=== PATIENT | female | born 1975 | race Caucasian/White ===

== ENCOUNTER 2016-07-25 15:18 | Emergency (ER) | payer SELFPAY ==
[~2016-07-25 15:18] MED LIST: LITH300T19
== END 2016-07-25 17:45 | disposition left against medical advice (07) ==
LOC: ER 15:19
DX: M54.2 Cervicalgia (principal); Z53.21 Procedure and treatment not carried out due to patient leaving prior to being seen by health care provider

== ENCOUNTER 2017-05-14 19:40 | Inpatient (IN) | payer MEDICAID ==
[~2017-05-14] VITALS: Ht 162.6 cm; Wt 79.4 kg
[~2017-05-14 19:40] MED LIST changes: -LITH300T19; +LITHBID
[2017-05-14] MEDS ORDERED: DEXT 5%/LR + PITOCIN 20UNITS/L 1,000 ML IV ONE (20:04)
[2017-05-14] MEDS ORDERED: DEXT 5%/LR + PITOCIN 20UNITS/L 1,000 ML IV SCH ×3 (20:07→23:38)
[2017-05-14] MEDS ORDERED: METHYLERGONOVINE MALEATE 0.2 MG/ML IM PRN ×2 (20:15→20:30)
[2017-05-14] MEDS ORDERED: GLYCERIN/WITCH HAZEL LEAF MEDICATED PAD TOP PRN (20:15)
[2017-05-14] MEDS ORDERED: LACTATED RINGERS 1,000 ML IV SCH (20:22)
[2017-05-14] MEDS ORDERED: CARBOPROST TROMETHAMINE 250 MCG/ML AMPUL IM PRN (20:30)
[2017-05-14] MEDS ORDERED: NALOXONE HCL 0.4 MG/ML 1ML VIAL IM PRN (20:30)
[2017-05-14] MEDS: IBUPROFEN 400MG TABLET PO PRN (20:47)
[2017-05-14] MEDS: SIMETHICONE 80MG TABLET CHEW PO SCH (21:00)
[2017-05-14] MEDS ORDERED: DOCUSATE SODIUM 100MG CAPSULE PO SCH (21:00)
[2017-05-14 21:23] LABS: HEMATOCRIT. 29.8 % (36.0-48.0); HEMOGLOBIN. 9.9 g/dL (12.0-16.0); MEAN CORPUSCULAR HEMOGLOBIN 29.2 pg (28.0-32.0); MEAN CORPUSCULAR VOLUME 87.6 fL (81.0-99.0); MEAN PLATELET VOLUME 8.2 fl (7.4-10.4); PLATELET 217 x1000/uL (130-400)
[2017-05-14 21:30] LABS: INR 0.9; PARTIAL THROMBOPLASTIN TIME 25.2 sec (23.4-31.0); PROTHROMBIN TIME 9.7 sec (9.4-11.6)
[2017-05-14 22:16] LABS: HEPATITIS B SURFACE ANTIGEN NEGATIVE; RUBELLA IGG 63.2 IU/mL (4.99-10)
[2017-05-14 23:30] LABS: CLARITY URINE CLOUDY (CLEAR); COLOR URINE RED (YELLOW); KETONES URINE NEGATIVE (NEGATIVE); LEUKOCYTE ESTERASE URINE 3+ (NEGATIVE); NITRITE URINE POSITIVE (NEGATIVE); OCCULT BLOOD URINE 3+ (NEGATIVE); PH URINE 6.5 (4.5-8.0); PROTEIN URINE 2+ (NEGATIVE); SPECIFIC GRAVITY URINE 1.012 (1.005-1.030); UROBILINOGEN URINE 0.2 E.U./dL (0.2-1.0)
[2017-05-14 23:33] LABS: *BARBITURATES SCREEN URINE NEGATIVE (NEGATIVE); *BENZODIAZEPINES SCREEN URINE NEGATIVE (NEGATIVE); *COCAINE SCREEN URINE NEGATIVE (NEGATIVE); METHADONE URINE SCREEN NEGATIVE (NEGATIVE); OPIATES URINE SCREEN NEGATIVE (NEGATIVE); PHENCYCLIDINE URINE SCREEN NEGATIVE (NEGATIVE)
[2017-05-14 23:37] LABS: *AMPHETAMINES SCREEN URINE PRESUMTIVE POSITIVE (NEGATIVE); CANNABINOID URINE SCREEN PRESUMTIVE POSITIVE (NEGATIVE)
[2017-05-15] VITALS: BP 96/58
[2017-05-15] MEDS: IBUPROFEN 400MG TABLET PO PRN (06:03)
[2017-05-15 06:42] VITALS: BP 109/62
[2017-05-15 07:20] LABS: PLATELET ESTIMATE NORMAL
[2017-05-15 08:25] VITALS: BP 107/52
[2017-05-15] MEDS: SIMETHICONE 80MG TABLET CHEW PO SCH ×4 (09:00→21:00)
[2017-05-15] MEDS ORDERED: INFLUENZA VIRUS VACCINE 0.5ML SYR IM ONE (09:15)
[2017-05-15] MEDS ORDERED: TETANUS, DIPHTHERIA, PERTUSSIS VAC/PF 0.5ML (>7YR OLD) IM ONE (09:15)
[2017-05-15] MEDS: FERROUS SULFATE 325MG TABLET PO SCH ×2 (13:00→16:39)
[2017-05-15 16:29] VITALS: BP 113/72
[2017-05-15 23:50] VITALS: BP 116/62
[2017-05-16] MEDS: IBUPROFEN 400MG TABLET PO PRN ×2 (00:40→00:41)
[2017-05-16] MEDS ORDERED: HYDROCODONE/ACETAMINOPHEN 5/325MG TABLET PO PRN (01:45)
[2017-05-16] MEDS ORDERED: TETANUS, DIPHTHERIA, PERTUSSIS VAC/PF 0.5ML (>7YR OLD) IM ONE (06:00)
[2017-05-16 08:37] VITALS: BP 105/66
[2017-05-16] MEDS: SIMETHICONE 80MG TABLET CHEW PO SCH (09:00)
[2017-05-16] MEDS: FERROUS SULFATE 325MG TABLET PO SCH (09:00)
== END 2017-05-16 09:15 | disposition home or self-care (01) | DRG 561 ==
LOC: OBSVTOIN 19:40 → L&D 19:40 → 7EST PP/OB 22:46
PROVIDERS: ADMIT Specialist; ATTEND Specialist
DX: O99.345 Other mental disorders complicating the puerperium (principal); O99.325 Drug use complicating the puerperium; F41.9 Anxiety disorder, unspecified; F15.10 Other stimulant abuse, uncomplicated; O99.335 Smoking (tobacco) complicating the puerperium; O99.03 Anemia complicating the puerperium; D64.9 Anemia, unspecified; F43.10 Post-traumatic stress disorder, unspecified; F90.9 Attention-deficit hyperactivity disorder, unspecified type; Z79.899 Other long term (current) drug therapy; F12.10 Cannabis abuse, uncomplicated
CPT/HCPCS: 36415; 80305; 80307; 80349; 81001; 85025; 85610; 85730; 86592; 86703; 86762; 86850; 86900; 87340; 90715; J2590

== ENCOUNTER 2022-09-27 08:08 | Emergency (ER) | payer MEDICAID, OTHER ==
[~2022-09-27] VITALS: Ht 167.6 cm; Wt 64.0 kg
[~2022-09-27 08:08] MED LIST changes: +CEPH500C2 MT; -LITHBID; +MUPI15CR11 TP; +SULF1TAB48 MT
[2022-09-27 08:14] VITALS: BP 138/90
[2022-09-27] MEDS ORDERED: CEFTRIAXONE SODIUM 1 G/VIAL IM ONE (11:00)
[2022-09-27] MEDS ORDERED: IBUPROFEN 600MG TABLET PO ONE (11:00)
[2022-09-27] MEDS ORDERED: IBUP-2029 MT (11:25)
[2022-09-27] MEDS ORDERED: AMOX1TAB16 MT (11:25)
[2022-09-27] MEDS ORDERED: LIDOCAINE HCL 1% 20ML VIAL (Pyxis) INJ INFIL ONE (11:30)
== END 2022-09-27 12:06 | disposition home or self-care (01) ==
LOC: ER 08:08
DX: H60.11 Cellulitis of right external ear (principal); F41.9 Anxiety disorder, unspecified; F12.10 Cannabis abuse, uncomplicated; Z79.899 Other long term (current) drug therapy
CPT/HCPCS: 81025; 96372; 99283; J0696; J3490

== ENCOUNTER 2023-12-07 05:51 | Emergency (ER) | payer OTHER ==
[~2023-12-07] VITALS: Ht 167.6 cm; Wt 70.0 kg
[~2023-12-07 05:51] MED LIST changes: +AMOX1TAB16 MT; +FURO-152 MT; +IBUP-2029 MT
[2023-12-07 05:58] VITALS: BP 99/65; PULSE 85; RESP 20; TEMP 98.2; O2SAT 95
== END 2023-12-07 07:14 ==
LOC: ER 05:51
DX: F23 Brief psychotic disorder (principal); F41.9 Anxiety disorder, unspecified; F31.9 Bipolar disorder, unspecified; I50.9 Heart failure, unspecified; J44.9 Chronic obstructive pulmonary disease, unspecified; F12.10 Cannabis abuse, uncomplicated; Z79.899 Other long term (current) drug therapy; Y08.89XA Assault by other specified means, initial encounter; Y93.89 Activity, other specified; Y92.89 Other specified places as the place of occurrence of the external cause; Y99.8 Other external cause status
CPT/HCPCS: 99283